=== PATIENT | female | born 1975 | race Caucasian/White ===

== ENCOUNTER → 2017-10-27 | Outpatient (CLI) | payer BC ==
--- NOTE | 2017-10-28 17:32 | RADIOLOGY IMAGING REPORT ---
FACILITY: [facility] PATIENT NAME: JUAN LUIS WOLF : [id number] MR: [id number] V: [id number] EXAM DATE: [id number] ORDERING PHYSICIAN: TIMMY BUSTAMANTE TECHNOLOGIST: Moraima Liz PROCEDURE:BILATERAL DIGITAL SCREENING MAMMOGRAM WITH CAD ASSISTED INTERPRETATION & 3D TOMOSYNTHESIS COMPARISON:None. INDICATIONS:SCREENING FINDINGS: A small amount of fibroglandular tissue is seen throughout the breasts. There are two loosely grouped collections of calcifications in the approximate 12 o'clock position of the right breast for which spot magnification views are recommended. There are multiple nodular densities seen throughout the left breast most prominent in the upper outer quadrant although these nodules were marked on the accompanying mammogram. A compression view of the left breast and left breast ultrasound recommended for further evaluation. DIAGNOSTIC CATEGORY 0--INCOMPLETE: NEED ADDITIONAL IMAGING EVALUATION. RECOMMENDATIONS: ADDITIONAL MAMMOGRAPHIC VIEWS REQUIRED: BILATERAL BREASTS. ULTRASOUND: LEFT BREAST. IMPRESSION: BIRADS 0: Spot magnification view of the right breast and spot compression view of the left breast a month breast ultrasound is recommended as detailed above. Dictated by: Alissa Philip M.D. on 10/28/2017 at 11:35 Transcribed by: ABDELRAHMAN on 10/28/2017 at 13:31 Approved by: Alissa Philip M.D. on 10/28/2017 at 17:31 [facility]
== END ==
LOC: MAMO 14:50
PROVIDERS: ATTEND Obstetrics & Gynecology
DX: Z12.31 Encounter for screening mammogram for malignant neoplasm of breast (principal); R92.1 Mammographic calcification found on diagnostic imaging of breast; R92.8 Other abnormal and inconclusive findings on diagnostic imaging of breast
CPT/HCPCS: 77063; 77067

== ENCOUNTER → 2017-11-12 | Outpatient (CLI) | payer BC ==
--- NOTE | 2017-11-13 14:40 | RADIOLOGY IMAGING REPORT ---
FACILITY: [facility] PATIENT NAME: JUAN LUIS WOLF : [id number] MR: [id number] V: [id number] EXAM DATE: ORDERING PHYSICIAN: TIMMY BUSTAMANTE TECHNOLOGIST: Moraima Liz PROCEDURE:BILATERAL DIAGNOSTIC DIGITAL MAMMOGRAM WITH CAD ASSISTED INTERPRETATION & 3D TOMOSYNTHESIS COMPARISON:Prior mammograms 10/27/17. INDICATIONS:FURTHER EVAL FINDINGS: Small amount of fibroglandular tissue is again seen throughout the breasts. Patient returns for spot magnification views in the Right CC and MLO projections in addition to mediolateral views of both breasts and spot compression views in the Left CC and MLO projections. There are three focal collections of round calcifications in the approximate 12 o'clock position of the Right breast. The greatest number of calcifications which appear powder like are the medial of the three groups and the most inferior of the three groups for which stereotactic biopsy is recommended. The nodular densities in the Left breast are again seen and appear to be predominantly in the upper outer quadrant of the Left breast. Today's Left breast ultrasound demonstrated several well circumscribed hypoechoic/anechoic nodules in the 12, 11 and 1 o'clock positions which may account for the mammographic findings. DIAGNOSTIC CATEGORY 4--SUSPICIOUS FOR MALIGNANCY. RECOMMENDATIONS: SIX MONTH FOLLOW-UP DIAGNOSTIC MAMMOGRAM: LEFT BREAST. STEREOTACTIC BREAST BIOPSY: RIGHT BREAST. IMPRESSION: BIRADS 4: Suspicious for malignancy Stereotactic biopsy of the largest group of powder like calcifications in the approximate 12 o'clock position of the Right breast as recommended as described above. A 6 month follow-up Left mammogram is recommended to evaluate stability of the multiple scattered nodules most prominent in the upper outer quadrant Dictated by: Alissa Philip M.D. on 11/12/2017 at 16:22 Transcribed by: ABDELRAHMAN on 11/13/2017 at 11:48 Approved by: Alissa Philip M.D. on 11/13/2017 at 14:40 [facility]
--- NOTE | 2017-11-13 14:41 | RADIOLOGY IMAGING REPORT ---
FACILITY: [facility] PATIENT NAME: JUAN LUIS WOLF : [id number] MR: [id number] V: [id number] EXAM DATE: [id number] ORDERING PHYSICIAN: TIMMY BUSTAMANTE TECHNOLOGIST: Krysta Askew PROCEDURE:US LEFT BREAST COMPLETE COMPARISON:None. INDICATIONS:FURTHER EVAL FINDINGS: In the 12 o'clock position of the Left breast there is a 4mm cyst. In the 1 o'clock position of the Left breast 5cm from the nipple there is an approximate 9mm cluster of cysts. In the 11 o'clock position of the Left breast 2cm from the nipple there is a 5.4mm well circumscribed ovoid hypoechoic nodule with no acoustic shadowing. This may represent a small debris filled cyst. DIAGNOSTIC CATEGORY 4--SUSPICIOUS FOR MALIGNANCY. RECOMMENDATIONS: SIX MONTH FOLLOW-UP DIAGNOSTIC MAMMOGRAM: LEFT BREAST. STEREOTACTIC BREAST BIOPSY: RIGHT BREAST. IMPRESSION: BIRADS 4: Suspicious for malignancy Stereotactic biopsy of the Right breast recommended as described in today's mammography report. A six month follow-up Left mammogram is recommended to document stability of the nodules most prominent in the upper outer quadrant of the Left breast. Dictated by: Alissa Philip M.D. on 11/12/2017 at 16:24 Transcribed by: ADAL on 11/13/2017 at 11:40 Approved by: Alissa Philip M.D. on 11/13/2017 at 14:40 [facility]
== END ==
LOC: MAMO 00:59
PROVIDERS: ATTEND Obstetrics & Gynecology
DX: N60.02 Solitary cyst of left breast (principal); R92.8 Other abnormal and inconclusive findings on diagnostic imaging of breast; R92.1 Mammographic calcification found on diagnostic imaging of breast
CPT/HCPCS: 77062; 77066

== ENCOUNTER 2017-12-02 13:43 | Outpatient (RCR) | payer BC ==
[2017-12-02 14:13] LABS: INR 0.94
[2017-12-03] MEDS ORDERED: NS 0.9% IVPB ONE (13:40)
--- NOTE | 2017-12-18 15:22 | RADIOLOGY IMAGING REPORT ---
FACILITY: [facility] PATIENT NAME: JUAN LUIS WOLF : [id number] MR: [id number] V: [id number] EXAM DATE: [id number] ORDERING PHYSICIAN: TIMMY BUSTAMANTE TECHNOLOGIST: Moraima Liz PROCEDURE: STEREOTACTIC RIGHT BREAST BIOPSY COMPARISON: None. INDICATIONS: INDETERMINATE CALCIFICATIONS FINDINGS: Informed consent was obtained. The indeterminate powder like calcifications in the approximate 12 o'clock position of the Right breast were localized with digital stereo images of the Right breast. The right breast was prepped in the usual sterile fashion. Local anesthesia was accomplished with 1% lidocaine. Deep anesthesia was accomplished with 1% lidocaine with epinephrine. The 9 Gauge core biopsy device was advanced percutaneously into the Right breast under stereotactic guidance. When biopsies were attempted there was insufficient vacuum to obtain samples due to air leaking around the plastic sleeve. The needle and hand piece were exchanged with a new hand piece and stereotactic localization was again attempted however due to the infiltration of the region with lidocaine the tiny microcalcifications could not be visualized in a new stereo pair of images therefore it was elected to reschedule the stereotactic biopsy of the Right breast at a later date. IMPRESSION: As above. Dictated by: Alissa Philip M.D. on 12/04/2017 at 13:26 Transcribed by: ABDELRAHMAN on 12/05/2017 at 10:27 Approved by: Alissa Philip M.D. on 12/05/2017 at 11:48 [facility]
--- NOTE | 2017-12-18 15:22 | RADIOLOGY IMAGING REPORT ---
FACILITY: [facility] [place] PATIENT NAME: JUAN LUIS WOLF : [id number] MR: [id number] V: [id number] EXAM DATE: [id number] ORDERING PHYSICIAN: TIMMY BUSTAMANTE TECHNOLOGIST: Moraima Liz PROCEDURE: STEREOTACTIC RIGHT BREAST BIOPSY COMPARISON: None. INDICATIONS: INDETERMINATE CALCIFICATIONS FINDINGS: Informed consent was obtained. The indeterminate powder like calcifications in the approximate 12 o'clock position of the Right breast were localized with digital stereo images of the Right breast. The right breast was prepped in the usual sterile fashion. Local anesthesia was accomplished with 1% lidocaine. Deep anesthesia was accomplished with 1% lidocaine with epinephrine. The 9 Gauge core biopsy device was advanced percutaneously into the Right breast under stereotactic guidance. When biopsies were attempted there was insufficient vacuum to obtain samples due to air leaking around the plastic sleeve. The needle and hand piece were exchanged with a new hand piece and stereotactic localization was again attempted however due to the infiltration of the region with lidocaine the tiny microcalcifications could not be visualized in a new stereo pair of images therefore it was elected to reschedule the stereotactic biopsy of the Right breast at a later date. IMPRESSION: As above. Dictated by: Alissa Philip M.D. on 12/04/2017 at 13:26 Transcribed by: ABDELRAHMAN on 12/05/2017 at 10:27 Approved by: Alissa Philip M.D. on 12/05/2017 at 11:48 [facility]
== END 2017-12-17 ==
LOC: LAB 13:43 → EDSTATUS 12-03 13:42
PROVIDERS: ATTEND Obstetrics & Gynecology
DX: Z01.812 Encounter for preprocedural laboratory examination (principal); R92.8 Other abnormal and inconclusive findings on diagnostic imaging of breast
CPT/HCPCS: 36415; 85610; J7050

== ENCOUNTER 2017-12-30 08:45 | Outpatient (RCR) | payer BC ==
[2017-12-30 09:08] LABS: INR 0.97
[2017-12-31] MEDS ORDERED: LIDO/EPI 1% MDV 1:100,000 20ML INFIL ONE (14:34)
[2017-12-31] MEDS ORDERED: NS(*) 0.9% 10 ML VIAL 40 ML ONE (14:34)
--- NOTE | 2018-01-01 08:24 | RADIOLOGY IMAGING REPORT ---
FACILITY: [facility] [place] PATIENT NAME: JUAN LUIS WOLF : [id number] MR: [id number] V: [id number] EXAM DATE: [id number] ORDERING PHYSICIAN: TIMMY BUSTAMANTE TECHNOLOGIST: Franca Valle PROCEDURE: BREAST SPECIMEN COMPARISON: None. INDICATIONS: RIGHT BREAST CLCIFICATIONS FINDINGS: The specimen radiograph demonstrates numerous core samples from Today's Right breast stereotactic biopsy. Multiple calcifications are seen in several of the core samples. CONCLUSION: Above. Dictated by: Alissa Philip M.D. on 12/31/2017 at 15:41 Transcribed by: ABDELRAHMAN on 12/31/2017 at 16:08 Approved by: Alissa Philip M.D. on 01/01/2018 at 8:23 [facility]
--- NOTE | 2018-01-01 09:06 | RADIOLOGY IMAGING REPORT ---
FACILITY: [facility] PATIENT NAME: JUAN LUIS WOLF : [id number] MR: [id number] V: [id number] EXAM DATE: [id number] ORDERING PHYSICIAN: TIMMY BUSTAMANTE TECHNOLOGIST: Franca Valle PROCEDURE:RIGHT DIGITAL DIAGNOSTIC MAMMOGRAM COMPARISON:Prior mammogram 11/12/17 and Bilateral mammogram 10/27/17. INDICATIONS:CLIP PLACEMENT FINDINGS: Moderate amount of fibroglandular tissue is seen in the Right breast. Stereotactic biopsy clip is in the approximate 12 o'clock position deep central Right breast surrounded by a small collection of air. Fewer calcifications are now seen in the 12 o'clock position of the Right breast. Pathology results are pending. IMPRESSION: A stereotactic biopsy clip is seen in the approximate 12 o'clock position of the deep central Right breast with fewer calcifications now seen in this location. Pathology results are pending. Dictated by: Alissa Philip M.D. on 12/31/2017 at 17:37 Transcribed by: ABDELRAHMAN on 01/01/2018 at 8:43 Approved by: Alissa Philip M.D. on 01/01/2018 at 9:05 [facility]
--- NOTE | 2018-01-01 10:35 | RADIOLOGY IMAGING REPORT ---
FACILITY: [facility] [place] PATIENT NAME: JUAN LUIS WOLF : [id number] MR: [id number] V: [id number] EXAM DATE: [id number] ORDERING PHYSICIAN: TIMMY BUSTAMANTE TECHNOLOGIST: Franca Valle PROCEDURE: STEREOTACTIC RIGHT BREAST BIOPSY COMPARISON: None. INDICATIONS: RIGHT BREAST CLCIFICATIONS FINDINGS: Informed consent was obtained. The patient was placed prone on the stereotactic biopsy table. The indeterminate calcifications in the 12 o'clock position of the Right breast were imaged with digital stereo pear images of the Right breast and calcifications. Local anesthesia was accomplished with 1% lidocaine. Utilizing stereotactic guidance 12 vacuum assisted 14 Gauge core biopsies were obtained 3 indeterminate calcifications in the Right breast. The specimen radiograph revealed multiple calcifications in several of the core samples. Biopsy clip was placed. The post biopsy Right mammogram demonstrated the clip to be in the approximate 12 o'clock position of the Right breast surrounded by a small collection of air from the procedure. Fewer calcifications are now seen in this location. The procedure was accomplished without apparent complication. CONCLUSION: Successful stereotacticly guided Right breast biopsy. Dictated by: Alissa Philip M.D. on 12/31/2017 at 17:35 Transcribed by: ABDELRAHMAN on 01/01/2018 at 9:05 Approved by: Alissa Philip M.D. on 01/01/2018 at 10:34 [facility]
== END 2017-12-31 18:00 | disposition home or self-care (01) ==
LOC: MAMO 08:45
PROVIDERS: ATTEND Obstetrics & Gynecology
DX: Z01.812 Encounter for preprocedural laboratory examination (principal); R92.1 Mammographic calcification found on diagnostic imaging of breast; N60.89 Other benign mammary dysplasias of unspecified breast
CPT/HCPCS: 19081; 36415; 77061; 77065; 85610; 88305; 88344